=== PATIENT | male | born 1955 | race Caucasian/White ===

== ENCOUNTER → 2020-02-11 17:04 | Outpatient (CLI) | payer OTHER, SELFPAY ==
--- NOTE | 2020-02-11 17:08 | DI.RAD.S_ITS ---
PROCEDURE: XR LUMBAR SPINE 2-3V INDICATIONS: Progressive lower back pain, hamstring discomfort TECHNIQUE: 4 views of the lumbar spine were acquired. COMPARISON: None. FINDINGS: Bones: No vertebral body height loss. Intervertebral disc space narrowing at L3-4, L4-5, especially L4-5. Facet arthrosis at L4-5 and L5-S1. Mild leftward curvature of the lumbar spine. The sacroiliac joints are normal. Soft tissues: Large amount of stool is present in the colon. IMPRESSION: 1. Degenerative changes of the lumbar spine with disc disease most severe at L4-5. 2. Mild leftward curvature of the lumbar spine. 3. Facet arthrosis in the lower lumbar spine. Dictated by: Gavino Floyd M.D. on 02/12/2020 at 8:37 Approved by: Gavino Floyd M.D. on 02/12/2020 at 8:42
== END ==
PROVIDERS: PCP Family Medicine; Referring Provider Family Medicine; Visit Provider Family Medicine
DX: M54.5 Low back pain (principal); M47.816 Spondylosis without myelopathy or radiculopathy, lumbar region; M47.817 Spondylosis without myelopathy or radiculopathy, lumbosacral region
CPT/HCPCS: 72100

== ENCOUNTER → 2020-06-13 12:42 | Outpatient (CLI) | payer OTHER, SELFPAY ==
--- NOTE | 2020-06-13 12:44 | DI.MRI.S_ITS ---
PROCEDURE: MR LUMBAR SPINE WO CON INDICATIONS: lumbar spondylolysis TECHNIQUE: Noncontrast sagittal T1 spin echo and T2 fast echo, sagittal STIR, axial T1 and T2 fast spin echo through the lumbar spine. In cases with scoliosis, additional coronal T2 fast spin echo may be performed. COMPARISON: [facility], CR, XR LUMBAR SPINE 2-3V, 02/11/2020, 17:07. FINDINGS: Image quality: Excellent. Alignment and Curvature: 5 lumbar type vertebral bodies are present by plain film. There is mild, grade 1 retrolisthesis of L3 on L4 and L2 on L3. Bone Marrow: Marrow is of normal overall signal. No acute vertebral body compression fractures. There is moderate reactive signal within the endplates adjacent to the L4-L5 intervertebral disc. Mild reactive signal within the endplates adjacent to the L2-L3, L3-L4, and L5-S1 intervertebral discs. Spinal Cord: Conus medullaris terminates at the L1-L2 disc space level. Visualized cord demonstrates normal signal and size. Paraspinous Soft Tissues: No paravertebral masses. T12-L1: Moderate disc height loss and desiccation. Mild diffuse disc bulge. Mild facet and ligamentum flavum hypertrophy. Mild epidural lipomatosis. Mild canal stenosis. Mild bilateral foraminal stenosis. L1-L2: Mild disc height loss and desiccation. Mild diffuse disc bulge. Mild facet and ligamentum flavum hypertrophy. Mild epidural lipomatosis. Mild canal stenosis. Moderate right and mild left foraminal stenosis. L2-L3: Moderate disc height loss and desiccation. Mild diffuse disc bulge. Mild facet and ligamentum flavum hypertrophy. Mild epidural lipomatosis. Moderate canal stenosis. Moderate subarticular foraminal stenosis bilaterally. L3-L4: Moderate disc height loss and desiccation. Moderate diffuse disc bulge with superimposed broad-based right posterolateral and far lateral protrusion. Mild facet and ligamentum flavum hypertrophy. Mild epidural lipomatosis. Severe canal stenosis. Moderate left and severe right foraminal stenosis with right L3 nerve root compression. Right lateral recess stenosis with right L4 nerve root compression.. L4-L5: Severe disc height loss and desiccation. Mild diffuse disc bulge/osteophyte with superimposed broad-based right posterolateral and far lateral protrusion. Mild facet and ligamentum flavum hypertrophy. Mild epidural lipomatosis. Moderate canal stenosis. Moderate left and severe right foraminal stenosis. Right L4 nerve root compression. L5-S1: Moderate disc height loss and desiccation. Mild diffuse disc bulge. Mild bilateral facet hypertrophy. Mild canal stenosis. Severe bilateral foraminal stenosis with bilateral L5 nerve root compression. IMPRESSION: 1. Multilevel degenerative disc and facet disease, as well as ligamentum flavum hypertrophy and epidural lipomatosis. 2. Multilevel canal stenoses, worst at L3-L4, where there is severe canal stenosis. 3. Multilevel foraminal stenoses, worst at L3-L4, L4-L5, and L5-S1, where there is associated intraforaminal nerve root compression. 4. Right lateral recess stenosis at L3-L4 associated with L4 nerve root compression. 5. Recommend correlation with clinical symptoms to ascertain relevance of these findings. Dictated by: Alexis Benavides M.D. on 06/15/2020 at 9:02 Approved by: Alexis Benavides M.D. on 06/15/2020 at 9:11
== END ==
PROVIDERS: PCP Family Medicine; Referring Provider Family Medicine; Visit Provider Family Medicine
DX: M54.5 Low back pain (principal); M43.06 Spondylolysis, lumbar region; M51.36 Other intervertebral disc degeneration, lumbar region; M51.37 Other intervertebral disc degeneration, lumbosacral region; M48.061 Spinal stenosis, lumbar region without neurogenic claudication; M48.07 Spinal stenosis, lumbosacral region
CPT/HCPCS: 72148

== ENCOUNTER → 2020-09-01 09:41 | Outpatient (CLI) | payer MEDICARE, OTHER, SELFPAY ==
[2020-09-01 10:59] LABS: COVID19 -Nasal RAPID Negative (Negative)
== END ==
PROVIDERS: PCP Family Medicine; Visit Provider Surgery
DX: Z20.822 Contact with and (suspected) exposure to COVID-19 (principal)
CPT/HCPCS: 87635; C9803

== ENCOUNTER 2020-09-03 12:35 | Day surgery (SDC) | payer MEDICARE, OTHER, SELFPAY ==
[2020-09-03] VITALS (7 sets, daily range): BP systolic 114–131; BP diastolic 68–81; PULSE 70–92; RESP 12–16; TEMP 36.5–37.3; O2SAT 97–100; BMI 27.3
[2020-09-03] MEDS: LACTATED RINGERS 1,000 ML 200 ML IV (13:10)
--- NOTE | 2020-09-03 13:50 | PM.HP.1 ---
History of Present Illness History of Present Illness Date Patient Seen: 09/03/20 Time Patient Seen: 13:50 Chief complaint: SCREENING COLONOSCOPY Narrative: The patient presents for colorectal sreening. Previous colonoscopy 10 years ago. No personal or family history of colon cancer. On further history denies any recent gastrointestinal symptoms. No nausea, vomiting, abdominal pain, loss of appetite, unexplained weight loss, change in bowel habits, diarrhea, constipation, melena, hematochezia, or bright red blood per rectum. Patient History Medical History History of melanoma Low back pain Surgical History History of arthroscopy of left shoulder History of colonoscopy S/P left knee arthroscopy Family & Social History Social History: household members spouse Tobacco & Substance use: Smoking Status Never smoker alcohol intake current alcohol intake frequency 0-2 drinks per day Substance Use Type does not use Meds Home Medications and Allergies Home Medications Medication Instructions Recorded Confirmed Type acyclovir 400 mg tablet 400 mg PO TID 02/11/20 09/03/20 History propranolol 10 mg tablet 10 mg PO BID 02/11/20 09/03/20 History sildenafil (pulm.hypertension) 20 See Rx Instructions .ROUTE .COMPLEX 02/11/20 09/03/20 History mg tablet Allergies Allergy/AdvReac Type Severity Reaction Status Date / Time No Known Drug Allergies Allergy Verified 09/03/20 13:03 Review of Systems Review of Systems ROS: Yes All systems reviewed with the patient and are negative except as otherwise documented Exam Vital Signs (past 8 hours): - 09/03/20 13:21 Temperature 99.1 F Pulse Rate 70 Respiratory Rate 16 Blood Pressure 130/79 Pulse Oximetry 100 Oxygen Delivery Method Room Air Narrative Exam Narrative: GENERAL-well developed adult male, no acute distress HEENT-no scleral icterus, hearing intact NECK-no JVD, trachea midline CVS- regular rate, no peripheral edema RESP-unlabored respiratory effort, no audible wheezing GI-soft, nontender nondistended MSK-no cyanosis or clubbing, extremities without deformity SKIN-warm, dry NEURO-alert and oriented, no focal deficits PYSCH-Appropriate mood and affect Assessment & Plan Assessment & Plan narrative: The patient requires colorectal screening and colonoscopy is recommended. Technical details were discussed. Risks, benefits, alternatives explained. Risks including but not limited to myocardial infarction, aspiration, bleeding, pain, missed lesion, incomplete examination, need for further radiographic studies, colonic perforation, and need for major abdominal surgery were discussed. All questions were answered to their satisfaction, and they are in agreement with this plan.
--- NOTE | 2020-09-03 13:58 | SUR.OPER ---
GLASSES IN GLASS CASE TO PACU WITH PATIENT.
[2020-09-03] MEDS: fentaNYL 250 MCG/5 ML INJ IV (14:15)
[2020-09-03] MEDS: MIDAZOLAM 5 MG/5 ML VIAL IV (14:29)
--- NOTE | 2020-09-03 14:30 | PM.OP.ENDO ---
Operative Date/Time/Diagnoses Date of procedure: 09/03/20 Time of procedure: 14:30 Pre-op diagnosis: Screening colonoscopy Post-op diagnosis: same Procedure & Clinicians Study performed: Colonoscopy Same procedure as scheduled: Yes Indications: Screening Surgeon: Kendall Sumner Procedure Notes Procedure in detail: Medications: Conscious sedation using 8mg IV midazolam and 250mcg IV of fentanyl The history and physical was performed/updated and the patient is ASA class is 2. The procedure was discussed in detail with the patient. Potential risks complications including infection, bleeding, missed diagnosis, perforation, need for surgery, and were explained. Their questions were answered and informed consent was obtained. Patient was brought to the procedure room and placed standard monitoring equipment. The patient's vital signs were monitored continuously throughout the entire procedure. Prior to starting time-out was performed. The patient was placed in the left lateral recumbent position. Procedural sedation was administered. Examination began with a thorough inspection of the perianal area there was no evidence of fissures, fistulae, external hemorrhoids or cutaneous malignancy. The colonoscopy scope was then placed into the anal canal and was advanced to the cecum, which was identified by the ileocecal valve, the appendiceal orifice and the confluence of the taenia. The scope was then slowly withdrawn examining colon thoroughly in all directions, irrigating it of any residual stool. FINDINGS 1. Normal healthy colon 2. No masses or polyps 3. Grade 1 internal hemorrhoids The patient tolerated the procedure well. They will be discharged once criteria are met. The prep was of good/excellent quality. The withdrawl time was 7 minutes. The sedation time was 28 minutes. Specimen(s): none sent Complications: none Impression: Normal colonoscopy Post-procedure Recommendations: Colonscopy in 10 years Disposition: same day surgery
== END 2020-09-03 15:04 | disposition home or self-care (01) ==
PROVIDERS: PCP Family Medicine; Referring Provider Surgery; Visit Provider Surgery
PROC: 0DJD8ZZ Inspection of Lower Intestinal Tract, Via Natural or Artificial Opening Endoscopic (ICD-10-PCS; CPT 45378; principal; 2020-09-03 13:45)
DX: Z12.11 Encounter for screening for malignant neoplasm of colon (principal); K64.0 First degree hemorrhoids
CPT/HCPCS: G0121; 99152; 99153; J2250; J3010

== ENCOUNTER → 2020-10-13 12:12 | Outpatient (CLI) | payer MEDICARE, OTHER, SELFPAY ==
--- NOTE | 2020-10-13 12:15 | DI.MRI.S_ITS ---
PROCEDURE: MR SHOULDER RT WO CON INDICATIONS: Unspecified disorder of synovium and tendon TECHNIQUE: Noncontrast oblique coronal T2 fast spin echo with fat saturation, oblique sagittal T1 spin echo and T2 fast spin echo with fat saturation, axial T1 spin echo and T2 fast spin echo with fat saturation through the shoulder. COMPARISON: [facility], CR, XR SHOULDER 2+ VIEWS RIGHT, 09/29/2020, 11:38. FINDINGS: Rotator cuff: Supraspinatus tendinopathy with partial thickness articular and bursal sided tear at the junction of the footprint and critical zone. Infraspinatus tendinopathy and mild thickening with low-grade bursal surface fraying. Teres minor tendon appears intact. Subscapularis tendon appears intact. Large focus of heterotopic ossification seen anterior to the glenoid. This measures 2.8 x 0.7 cm on sagittal image 18/9 . Additional smaller 1 cm focus is seen more inferolaterally on image 14/9. Atrophy of the subscapularis muscle is noted. Bones and bursae: No bone marrow contusions or fractures. Moderate acromioclavicular joint degeneration. Acromion demonstrates conventional anatomy, without an os acromiale. Mild subacromial-subdeltoid bursitis. Capsule and soft tissues: Labrum: Ill-defined posterior labral tear with adjacent partial-thickness chondral loss. There is adjacent glenoid rim segmental spurring and sclerosis. Blunted appearance of the inferior segment of the labrum. Incidental sublabral foramen. Glenohumeral ligaments: Inferior and superior glenohumeral ligaments are intact. Biceps tendon: Long head of the biceps tendon intact. Rotator interval: Normal signal intensity. Coracohumeral ligament: Intact. IMPRESSION: Partial-thickness rotator cuff tear as above. Large focus of heterotopic ossification anterior to the glenoid, chronic. Subscapularis muscle atrophy Mild subacromial-subdeltoid bursitis Chronic appearing ill-defined posterior labral tear with partial-thickness chondral loss. Dictated by: Greg Florence M.D. on 10/13/2020 at 15:53 Approved by: Greg Florence M.D. on 10/13/2020 at 15:59
== END ==
PROVIDERS: PCP Family Medicine; Referring Provider Orthopaedic Surgery; Visit Provider Orthopaedic Surgery
DX: M67.911 Unspecified disorder of synovium and tendon, right shoulder (principal); M75.111 Incomplete rotator cuff tear or rupture of right shoulder, not specified as traumatic; M75.51 Bursitis of right shoulder; M62.511 Muscle wasting and atrophy, not elsewhere classified, right shoulder; S43.491A Other sprain of right shoulder joint, initial encounter
CPT/HCPCS: 73221

== ENCOUNTER → 2021-01-26 11:47 | Outpatient (CLI) | payer MEDICARE, OTHER, SELFPAY ==
[2021-01-26 14:00] LABS: Add Manual Diff / Slide Review NO; Basophils Absolute Auto 0 /uL (0-100); Basophils Percent Auto 0.6 % (0-2); Eosinophils Absolute Auto 100 /uL (0-450); Eosinophils Percent Auto 1.7 % (2-4); Hematocrit 40.3 % (41-53); Hemoglobin 14.2 g/dL (13.5-17.5); Lymphocytes Absolute Auto 1400 /uL (1100-4500); Lymphocytes Percent Auto 35.6 % (25-40); Mean Corpuscular HGB Conc 35.3 % (30-36); Mean Corpuscular Hemoglobin 34.2 PG (26-34); Mean Corpuscular Volume 96.9 fL (80-100); Monocytes Absolute Auto 400 /uL (0-900); Monocytes Percent Auto 9.7 % (3-14); Neutrophils Absolute Auto 2100 /uL (1500-7000); Neutrophils Percent Auto 52.4 % (50-75); Platelet Count 150 X10^3/uL (150-400); Red Blood Cell Count 4.16 X10^6/uL (4.5-5.9)
[2021-01-26 14:24] LABS: Alanine Aminotransferase 33 IU/L (<50); Albumin 4.2 g/dL (3.5-5.0); Albumin Globulin Ratio 1.6 (1.0-2.8); Alkaline Phosphatase 50 U/L (38-126); Aspartate Aminotransferase 31 IU/L (17-59); BUN Creatinine Ratio 18.5 (6-22); Bilirubin Total 0.5 mg/dL (0.2-1.3); Blood Urea Nitrogen 15 mg/dL (9-20); Calcium 9.7 mg/dL (8.4-10.2); Carbon Dioxide 30 mmol/L (22-32); Chloride 106 mmol/L (98-107); Cholesterol 195 mg/dL (140-199); Estimated Glomerular Filt Rate > 60.0 mL/min (>60); Globulin 2.6 g/dL (1.7-4.1); Glucose 96 mg/dL (80-110); HDL Cholesterol 39 mg/dL (40-60); HEMOLYSIS < 15 (0-50); LDL Cholesterol Calculated 107 mg/dL (<100); Potassium 4.8 mmol/L (3.4-5.1); Sodium 139 mmol/L (137-145); Total Protein 6.8 g/dL (6.3-8.2); Triglycerides 247 mg/dL (35-150)
[2021-01-26 14:50] LABS: Prostate Specific Antigen Scrn 2.61 ng/mL (0.1-4.0)
== END ==
PROVIDERS: PCP Family Medicine; Referring Provider Family Medicine; Visit Provider Family Medicine
DX: I10 Essential (primary) hypertension (principal); Z12.5 Encounter for screening for malignant neoplasm of prostate; Z00.00 Encounter for general adult medical examination without abnormal findings
CPT/HCPCS: 36415; 80053; 80061; 85025; G0103

== ENCOUNTER → 2022-08-29 11:22 | Outpatient (CLI) | payer MEDICARE, SELFPAY ==
--- NOTE | 2022-08-29 11:23 | DI.US.S_ITS ---
PROCEDURE: US RENAL COMPLETE INDICATIONS: LEFT KIDNEY CYST TECHNIQUE: Real-time scanning was performed of the kidneys and bladder, with image documentation. COMPARISON: None. FINDINGS: Suboptimal views of the left kidney due to lack of good acoustic window. Kidneys: Kidneys are normal in size. Right kidney measures 11.4 cm long; left kidney measures 11.2 cm long. Right renal cortical thickness is 2.4 cm; left renal cortical thickness is 2.1 cm. There is a small partially exophytic cyst along the lateral right renal cortex measuring 1.3 cm. There is a suboptimally imaged hypoechoic/anechoic structure arising from the upper pole of the left kidney measuring 2.4 x 2.1 x 2.4 cm. There is no vascular flow detected. Renal cortical echotexture is normal. No hydronephrosis or nephrolithiasis. No suspicious solid mass lesions. Bladder: Pre-void bladder volume is 98 mL. Post-void residual is 21 mL. Pre-void images demonstrate no intraluminal masses or stones. On pre-void images, right but not left ureteral jets are noted with color Doppler interrogation. (Of note, ureteral jets may not be detectable in up to 25% of cases due to insufficient differences in specific gravity between ureteral and bladder urine). Miscellaneous: No free pelvic fluid. IMPRESSION: 1. 2.4 cm probable cystic structure arising from the upper pole of the left kidney. This area was not well imaged due to lack of good acoustic window. 2. Small urinary bladder postvoid residual. Dictated by: Hafsa Benjamin M.D. on 08/29/2022 at 17:54 Approved by: Hafsa Benjamin M.D. on 08/29/2022 at 17:57
== END ==
PROVIDERS: PCP Family Medicine; Referring Provider Family Medicine; Visit Provider Family Medicine
DX: N28.1 Cyst of kidney, acquired (principal)
CPT/HCPCS: 76770

== ENCOUNTER → 2023-03-15 09:53 | Outpatient (CLI) | payer MEDICARE, SELFPAY ==
[2023-03-15 10:58] LABS: Add Manual Diff / Slide Review NO; Basophils Absolute Auto 0 /uL (0-100); Basophils Percent Auto 0.5 % (0-2); Eosinophils Absolute Auto 0 /uL (0-450); Eosinophils Percent Auto 0.9 % (2-4); Hematocrit 37.5 % (41-53); Hemoglobin 12.9 g/dL (13.5-17.5); Lymphocytes Absolute Auto 1200 /uL (1100-4500); Lymphocytes Percent Auto 28.5 % (25-40); Mean Corpuscular HGB Conc 34.4 % (30-36); Mean Corpuscular Hemoglobin 32.1 PG (26-34); Mean Corpuscular Volume 93.1 fL (80-100); Monocytes Absolute Auto 500 /uL (0-900); Monocytes Percent Auto 11.1 % (3-14); Neutrophils Absolute Auto 2500 /uL (1500-7000); Platelet Count 167 X10^3/uL (150-400); Red Blood Cell Count 4.03 X10^6/uL (4.5-5.9); Red Cell Distribution Width 12.4 % (11.6-14.8); White Blood Cell Count 4.3 X10^3/uL (4.5-11.0)
[2023-03-15 11:10] LABS: Alanine Aminotransferase 27 IU/L (<50); Albumin 4.1 g/dL (3.5-5.0); Albumin Globulin Ratio 1.1 (1.0-2.8); Alkaline Phosphatase 89 U/L (38-126); Aspartate Aminotransferase 24 IU/L (17-59); BUN Creatinine Ratio 24.7 (6-22); Bilirubin Total 0.5 mg/dL (0.2-1.3); Blood Urea Nitrogen 21 mg/dL (9-20); Calcium 9.6 mg/dL (8.4-10.2); Carbon Dioxide 30 mmol/L (22-32); Chloride 102 mmol/L (98-107); Cholesterol 153 mg/dL (140-199); Estimated Glomerular Filt Rate > 60 mL/min (>60); Globulin 3.6 g/dL (1.7-4.1); Glucose 99 mg/dL (80-110); HDL Cholesterol 32 mg/dL (40-60); HEMOLYSIS < 15 (0-50); LDL Cholesterol Calculated 100 mg/dL (<100); Potassium 4.6 mmol/L (3.4-5.1); Sodium 137 mmol/L (137-145); Total Protein 7.7 g/dL (6.3-8.2); Triglycerides 107 mg/dL (35-150)
[2023-03-15 11:40] LABS: Prostate Specific Antigen Scrn 5.59 ng/mL (0.1-4.0)
[2023-03-15 11:41] LABS: TSH w/ Reflex to FT4 1.24 uIU/mL (0.47-4.68)
== END ==
PROVIDERS: PCP Family Medicine; Referring Provider Family Medicine; Visit Provider Family Medicine
DX: Z00.00 Encounter for general adult medical examination without abnormal findings (principal); E78.5 Hyperlipidemia, unspecified; Z12.5 Encounter for screening for malignant neoplasm of prostate
CPT/HCPCS: 36415; 80053; 80061; 84443; 85025; G0103

== ENCOUNTER → 2023-07-14 08:07 | Outpatient (CLI) | payer MEDICARE, SELFPAY ==
[2023-07-14 08:54] LABS: Add Manual Diff / Slide Review NO; Basophils Absolute Auto 0 /uL (0-100); Basophils Percent Auto 0.7 % (0-2); Eosinophils Absolute Auto 100 /uL (0-450); Eosinophils Percent Auto 2.1 % (2-4); Hematocrit 40.1 % (41-53); Lymphocytes Absolute Auto 1600 /uL (1100-4500); Lymphocytes Percent Auto 40.1 % (25-40); Mean Corpuscular Hemoglobin 33.3 PG (26-34); Mean Corpuscular Volume 95.4 fL (80-100); Monocytes Absolute Auto 500 /uL (0-900); Monocytes Percent Auto 11.7 % (3-14); Neutrophils Absolute Auto 1800 /uL (1500-7000); Neutrophils Percent Auto 45.4 % (50-75); Platelet Count 155 X10^3/uL (150-400); Red Cell Distribution Width 12.5 % (11.6-14.8)
[2023-07-14 09:27] LABS: HEMOLYSIS < 15 (0-50); Iron 123 ug/dL (49-181)
[2023-07-14 09:37] LABS: Percent Iron Saturation 37 % (20-50); Total Iron Binding Capacity 332 ug/dL (261-462); Transferrin 245 mg/dL (206-381)
[2023-07-14 10:53] LABS: Vitamin B12 532 pg/mL (239-931)
[2023-07-18 07:21] LABS: PSA Free % 21.8 % (.); PSA, Total 4.5 ng/mL (0.0-4.0)
== END ==
PROVIDERS: PCP Family Medicine; Referring Provider Family Medicine; Visit Provider Family Medicine
DX: N40.0 Benign prostatic hyperplasia without lower urinary tract symptoms (principal); D64.9 Anemia, unspecified; E78.5 Hyperlipidemia, unspecified
CPT/HCPCS: 36415; 82607; 83540; 83550; 84153; 84154; 85025

== ENCOUNTER → 2023-09-12 12:02 | Outpatient (CLI) | payer MEDICARE, SELFPAY ==
[2023-09-12 13:48] LABS: Prostate Specific Antigen 5.56 ng/mL (0.10-4.00)
[2023-09-13 07:36] LABS: PSA Free % 24.2 % (.); PSA, Total 4.5 ng/mL (0.0-4.0)
== END ==
PROVIDERS: PCP Family Medicine; Referring Provider Urology; Visit Provider Urology
DX: R97.20 Elevated prostate specific antigen [PSA] (principal)
CPT/HCPCS: 36415; 84153; 84154

== ENCOUNTER → 2023-12-18 10:53 | Outpatient (CLI) | payer MEDICARE, SELFPAY ==
[2023-12-18 12:13] LABS: Prostate Specific Antigen 4.01 ng/mL (0.10-4.00)
== END ==
PROVIDERS: PCP Family Medicine; Referring Provider Urology; Visit Provider Urology
DX: R97.20 Elevated prostate specific antigen [PSA] (principal)
CPT/HCPCS: 36415; 84153

== ENCOUNTER → 2024-06-20 09:26 | Outpatient (CLI) | payer MEDICARE, SELFPAY | PROVIDERS: PCP Family Medicine; Referring Provider Urology; Visit Provider Urology | DX: N40.1 Benign prostatic hyperplasia with lower urinary tract symptoms (principal); N13.8 Other obstructive and reflux uropathy; R97.20 Elevated prostate specific antigen [PSA] | CPT/HCPCS: 36415; 84153 ==

== ENCOUNTER → 2024-07-16 12:48 | Outpatient (CLI) | payer MEDICARE, SELFPAY ==
--- NOTE | 2024-07-16 12:50 | DI.MRI.S_ITS ---
PROCEDURE: MR PELVIC PROSTATE PROTOCOL INDICATIONS: 68 y/o M w/ elevated PSA, please eval. TECHNIQUE: Coronal HASTE, axial T1 FSE with fat saturation, 3-plane nonbreath-hold T2 FSE. After the administration of contrast, dynamic axial, delayed axial and coronal VIBE or 2-D FLASH with fat saturation through the pelvis. Diffusion weighted imaging and ADC was performed. COMPARISON: None. FINDINGS: Image quality: Diffusion weighted and dynamic contrast enhanced images are diagnostic. Prostate: Gland size is 4.3 x 3.1 x 4.3 cm; ellipsoid gland volume is 29.8 mL. PSA density measures 0.138 Transitional zone heterogenous nodules are present, either well encapsulated or mostly encapsulated, compatible with PI-RADS 1 or 2 likely BPH nodules. Mildly T2 hypointense heterogenous striated appearance of the peripheral zone is commonly seen with current or prior prostatitis, PI-RADS 2. These findings can obscure small cancers. Seminal vesicles are clear. Genitourinary system: Mildly trabeculated bladder with diverticula, probably from chronic obstruction Bowel and peritoneum: Increased fecal loading. No small bowel obstruction. Nodes and vessels: No aneurysmal vessel identified. No pathologic lymph nodes by size criteria Soft tissues: No significant pelvic wall abnormality Bones: No suspicious enhancing osseous lesion. IMPRESSION: No suspicious PI-RADS 4 or 5 lesion identified. Consider continued PSA and MRI surveillance if clinically indicated. No pelvic lymphadenopathy by size criteria. No aggressive osseous abnormality. Dictated by: Stuart Montoya M.D. on 07/17/2024 at 13:25 Approved by: Stuart Montoya M.D. on 07/17/2024 at 13:31
== END ==
PROVIDERS: PCP Family Medicine; Referring Provider Urology; Visit Provider Urology
DX: R97.20 Elevated prostate specific antigen [PSA] (principal); N32.89 Other specified disorders of bladder
CPT/HCPCS: 72197; A9579

== ENCOUNTER → 2025-02-05 09:35 | Outpatient (CLI) | payer MEDICARE, SELFPAY ==
[2025-02-06 09:09] LABS: PSA, Total 5.3 ng/mL (0.0-4.0)
== END ==
PROVIDERS: PCP Family Medicine; Referring Provider Urology; Visit Provider Urology
DX: R97.20 Elevated prostate specific antigen [PSA] (principal)
CPT/HCPCS: 36415; 84153; 84154